=== PATIENT | female | born 1950 | race Caucasian/White ===

== ENCOUNTER → 2018-02-26 | Outpatient (CLI) | payer MEDICARE, MEDICAID ==
[~2018-02-26] MED LIST: AMARYL1 MG PO; AMITRIPTYLINE H25 M2 PO; ASPIR 8181 M1 PO; BACTRIM DS TAB1 EAC1 PO; CHANTIX1 MG PO; CINNAMON500 MG PO; COLACE 100 MG100 MG PO; COMBIVENT INH; CYMBALTA60 MG PO; ECOTRIN325 MG PO; FISH OIL 1,001000 M2 PO; FLAGYL500 MG PO; FLONASE 0.05%50 MCG NASAL; FLUOXETINE HCL40 MG PO; GERITOL COMPLE1 EAC2 PO; GLUCOPHAGE1000 MG PO; HYDROCHLOROTHIA25 M2 PO; KEFLEX500 M1 PO; LEVAQUIN 500 M500 M2 PO; LEVOTHYROXINE0.05 MG PO; LOPRESSOR25 PO; LORTAB 5-325 M1 EACH PO; MAGOX 400400 MG PO; MEDROLDOSEPACK PO; NEURONTIN 300300 M1 PO; NEXIUM40 MG PO; NORCO 5-325 TA1 EACH PO; OMEPRAZOLE 20 M20 M1 PO; ONDANSETRON HCL4 M2 PO; OXYCODONE HCL 55 MG PO; PEPCID40 MG PO; PERCOCET PO; PHENERGAN 25 MG25 M1 PO; POTASSIUM99 M1 PO; PREDNISONE 10 M10 MG PO; PROZAC20 MG PO; ROBAXIN500 MG PO; SINGULAIR 10 MG10 M1 PO; SPIRIVA INH; VITAMIN B-12500 MCG PO; VITAMIN D32000 UNI1 PO; XANAX 0.5 MG0.5 MG PO; ZOFRAN ODT4 MG PO; ZYRTEC 10 MG TA10 MG PO
== END ==
LOC: M.RAD 11:25
DX: Z12.31 Encounter for screening mammogram for malignant neoplasm of breast (principal)

== ENCOUNTER → 2018-03-28 | Outpatient (CLI) | payer MEDICARE, MEDICAID | LOC: M.CT 14:21 | DX: I70.0 Atherosclerosis of aorta (principal); K52.9 Noninfective gastroenteritis and colitis, unspecified; R10.2 Pelvic and perineal pain ==

== ENCOUNTER → 2018-03-31 | Emergency (ER) | payer MEDICARE, MEDICAID | LOC: CANPREER → M.ERS 16:54 | DX: Z53.21 Procedure and treatment not carried out due to patient leaving prior to being seen by health care provider (principal) ==